=== PATIENT | female | born 1990 | race Caucasian/White ===

== ENCOUNTER 2024-03-18 15:28 | Emergency (ER) | payer MEDICAID ==
[~2024-03-18] VITALS: Ht 160 cm; Wt 80.0 kg
[2024-03-18 15:30] VITALS: O2SAT 99
[2024-03-18 16:50] LABS: BASOPHILS % 0.2 % (0.0-2.0); EOSINOPHILS % 3.6 % (0.0-5.0); HEMATOCRIT. 43.5 % (36.0-48.0); HEMOGLOBIN. 14.7 g/dL (12.0-16.0); LYMPHOCYTES % 17.8 % (20.0-50.0); MEAN CORPUSCULAR HEMOGLOBIN 34.1 pg (28.0-32.0); MEAN CORPUSCULAR HGB CONC 33.8 g/dL (31.0-37.0); MEAN CORPUSCULAR VOLUME 100.8 fL (81.0-99.0); MEAN PLATELET VOLUME 6.9 fl (7.4-10.4); MONOCYTES % 6.4 % (2.0-8.0); PLATELET 354 x1000/uL (130-400); RED BLOOD CELL COUNT 4.31 mill/uL (4.2-5.4); RED CELL DISTRIBUTION WIDTH 14.9 % (11.6-14.6); WHITE BLOOD COUNT 11.2 x1000/uL (4.5-11.0)
[2024-03-18 16:55] LABS: CHLORIDE 105 mEq/L (98-107); POTASSIUM 3.9 mEq/L (3.5-5.1); SODIUM 139 mEq/L (136-145)
[2024-03-18 16:56] LABS: CALCIUM 9.8 mg/dL (8.7-10.4); CARBON DIOXIDE 27 mEq/L (21-32)
[2024-03-18 16:58] LABS: DIFFERENTIAL COMMENT 1
[2024-03-18 17:01] LABS: CREATININE 0.8 mg/dL (0.6-1.0); GLUCOSE 103 mg/dL (70-105); UREA NITROGEN BLOOD 8 mg/dL (9-23)
[2024-03-18] MEDS: LORAZEPAM 2MG/ML INJ IV ONE ×2 (17:02→18:24)
[2024-03-18 17:03] LABS: ALANINE AMINOTRANSFERASE 15 IU/L (10-49); ALBUMIN 4.7 g/dL (3.2-4.8); ASPARTATE AMINOTRANSFERASE 19 IU/L (<34); BILIRUBIN TOTAL 0.4 mg/dL (0.1-1.0); PROTEIN TOTAL 7.9 g/dL (6.0-8.3)
[2024-03-18 17:05] LABS: T4 FREE 1.68 ng/dL (0.89-1.76); THYROID STIMULATING HORMONE 10.49 uIU/mL (0.55-4.78)
[2024-03-18 17:12] LABS: HCG SCREEN NEGATIVE
[2024-03-18 18:20] VITALS: PULSE 88; RESP 17; TEMP 36.94740; O2SAT 99
[2024-03-18 18:23] VITALS: BP 151/99
[2024-03-18] MEDS: LABETALOL 5MG/ML 4ML INJ IV ONE (18:23)
[2024-03-18] MEDS ORDERED: ASPIRIN 81MG TABLET PO ONE (19:45)
== END 2024-03-18 20:43 | disposition short-term general hospital (02) ==
LOC: ER 15:28
DX: R53.1 Weakness (principal); I10 Essential (primary) hypertension; E11.9 Type 2 diabetes mellitus without complications; E03.9 Hypothyroidism, unspecified; F10.20 Alcohol dependence, uncomplicated; R42 Dizziness and giddiness; F43.20 Adjustment disorder, unspecified
CPT/HCPCS: 99285; 96374; 70450; 80053; 84703; 84439; 83735; 84443; 85025; 36415; J2060